=== PATIENT | male | born 1990 | race Caucasian/White ===

== ENCOUNTER 2017-04-21 01:24 | Emergency (ER) | payer OTHER, BC ==
[~2017-04-21] VITALS: Ht 165.1 cm; Wt 96.0 kg
[2017-04-21 01:57] LABS: CHLORIDE 106 mEq/L (98-107); HEMATOCRIT 44.3 % (42.0-52.0); HEMOGLOBIN 15.1 g/dL (14.0-18.0); MEAN CORPUSCULAR HEMOGLOBIN 29.4 pg (28.0-32.0); MEAN CORPUSCULAR VOLUME 86.5 fL (80.0-94.0); PLATELET 384 x1000/uL (130-400); RED BLOOD CELL COUNT 5.12 mill/uL (4.7-6.1); RED CELL DISTRIBUTION WIDTH 13.9 % (11.6-14.6)
[2017-04-21 02:11] LABS: ETHANOL BLOOD 314 mg/dL
[2017-04-21 02:36] LABS: TROPONIN I < 0.02 ng/mL (0.00-0.04)
[2017-04-21] MEDS ORDERED: KCL 20MEQ/100ML PREMIX 100 ML IV SCH (03:15)
[2017-04-21] MEDS ORDERED: POTASSIUM CHLORIDE 20MEQ TABLET SR PO SCH (03:15)
[2017-04-21] MEDS ORDERED: IOHEXOL-300 100 ML BOTTLE ONE (03:33)
[2017-04-21] MEDS ORDERED: IBUPROFEN 400MG TABLET PO ONE (07:30)
[2017-04-21 07:52] LABS: BASOPHILS % 0.3 % (0.0-2.0); HEMATOCRIT. 45.7 % (42.0-52.0); HEMOGLOBIN. 15.9 g/dL (14.0-18.0); LYMPHOCYTES % 10.7 % (20.0-50.0); MEAN CORPUSCULAR HEMOGLOBIN 30.3 pg (28.0-32.0); MEAN CORPUSCULAR VOLUME 87.2 fL (80.0-94.0); MEAN PLATELET VOLUME 7.9 fl (7.4-10.4); MONOCYTES % 5.3 % (2.0-8.0); NEUTROPHILS % 83.7 % (40.0-76.0); PLATELET 326 x1000/uL (130-400); RED BLOOD CELL COUNT 5.24 mill/uL (4.7-6.1); RED CELL DISTRIBUTION WIDTH 14.1 % (11.6-14.6)
[2017-04-21 09:00] VITALS: BP 127/75
== END 2017-04-21 09:09 | disposition home or self-care (01) ==
LOC: ER 01:33
DX: S01.111A Laceration without foreign body of right eyelid and periocular area, initial encounter (principal); S00.81XA Abrasion of other part of head, initial encounter; F10.129 Alcohol abuse with intoxication, unspecified; R07.89 Other chest pain; R00.0 Tachycardia, unspecified; E87.6 Hypokalemia; Y90.8 Blood alcohol level of 240 mg/100 ml or more; V43.52XA Car driver injured in collision with other type car in traffic accident, initial encounter; Y93.89 Activity, other specified; Y92.488 Other paved roadways as the place of occurrence of the external cause
CPT/HCPCS: 36415; 70450; 71260; 72125; 80053; 83880; 84484; 85025; 85027; 86850; 86900; 86901; 93005; 96365; 99285; G0482; J3480; Q9967